=== PATIENT | male | born 1955 | race Caucasian/White ===

== ENCOUNTER → 2022-02-28 | Outpatient (CLI) | payer OTHER ==
[~2022-02-28] MED LIST: ABILIFY2 MG PO; ATORVASTATIN CA20 MG PO; CLOMIPRAMINE HC50 MG PO; CLONAZEPAM1 MG PO; IBUPROFEN800 MG PO; KEFLEX CAP 500500 MG PO; LANSOPRAZOLE30 MG PO; OXCARBAZEPINE300 MG PO; PERCOCET 5/325 T1 EA PO; TAMSULOSIN HCL0.4 MG PO; ZOLPIDEM TARTRAT5 MG PO
== END ==
LOC: CT 13:20
DX: I70.213 Atherosclerosis of native arteries of extremities with intermittent claudication, bilateral legs (principal); M54.50 Low back pain, unspecified; E66.9 Obesity, unspecified; I77.4 Celiac artery compression syndrome
CPT/HCPCS: 36415; 75635; 82565; 84520; Q9967